=== PATIENT | female | born 1955 | race Caucasian/White ===

== ENCOUNTER → 2021-03-16 13:08 | Outpatient (REF) | payer MEDICARE, SELFPAY | LOC: ANHLAB 13:08 | PROVIDERS: Visit Provider Nurse Practitioner | DX: D22.5 Melanocytic nevi of trunk (principal); L98.9 Disorder of the skin and subcutaneous tissue, unspecified | CPT/HCPCS: 88305 ==

== ENCOUNTER → 2021-04-20 12:49 | Outpatient (REF) | payer MEDICARE, SELFPAY | LOC: ANHLAB 12:49 | PROVIDERS: Visit Provider Nurse Practitioner | DX: D49.2 Neoplasm of unspecified behavior of bone, soft tissue, and skin (principal) | CPT/HCPCS: 88305 ==